=== PATIENT | female | born 1955 | race Caucasian/White ===

== ENCOUNTER → 2021-01-05 06:57 | Outpatient (CLI) | payer SELFPAY ==
[2021-01-05 17:58] LABS: SARS-CoV-2 RNA PCR Negative
== END ==
PROVIDERS: PCP Family Medicine Adolescent Medicine; Visit Provider Family Medicine Adolescent Medicine
DX: R68.89 Other general symptoms and signs (principal); Z20.822 Contact with and (suspected) exposure to COVID-19
CPT/HCPCS: C9803; U0003; U0005

== ENCOUNTER → 2021-09-21 09:32 | Outpatient (CLI) | payer SELFPAY ==
[2021-09-21 19:47] LABS: SARS-CoV-2 RNA PCR Negative
== END ==
PROVIDERS: PCP Family Medicine Adolescent Medicine; Visit Provider Family Medicine Adolescent Medicine
DX: R68.89 Other general symptoms and signs (principal); Z20.822 Contact with and (suspected) exposure to COVID-19
CPT/HCPCS: C9803; U0003; U0005

== ENCOUNTER 2022-10-12 01:43 | Day surgery (SDC) | payer OTHER, SELFPAY ==
[2022-09-26 15:08] VITALS: BMI 39.6
--- NOTE | 2022-10-11 14:15 | P.PNAN_ITS ---
Anes - Initial Pre Proc Eval Procedure: Operation Date: 10/12/22 10:00 Proposed Procedures p Screening Colonoscopy - Ryder Akins MD Date/Time: 10/11/22 14:15 Surgeon: Ryder Akins MD Pre Op Diagnosis: neoplasm screening Patient Data Age: 67 Gender: F Height: 1.7 m Weight: 115 kg Allergies Allergy/AdvReac Type Severity Reaction Status Date / Time perfume Allergy Cough Verified 10/12/22 09:06 amoxicillin [From Amoxil] AdvReac Unknown Unknown Verified 10/12/22 09:06 Penicillins AdvReac Unknown Unknown Verified 10/12/22 09:06 Sulfa (Sulfonamide AdvReac Unknown Rash Verified 10/12/22 09:06 Antibiotics) Home Medications Medication Instructions Recorded Confirmed Type escitalopram oxalate 10 mg tablet 10 mg PO DAILY #90 tabs 07/30/22 10/12/22 Rx fluticasone propionate 50 2 spray intranasal DAILY #16 grams 07/30/22 10/12/22 Rx mcg/actuation nasal spray,suspension pantoprazole 40 mg tablet,delayed 40 mg PO QHS #90 tabs 07/30/22 10/12/22 Rx release Cbd 1 gummy PO HS 09/26/22 10/12/22 History multivitamin with minerals-folic 1 tablet PO DAILY 09/26/22 10/12/22 History acid 0.4 mg tablet Patient hx anesthesia problems: none Family hx anesthesia problems: none Results Review: All pre-operative results and documents have been reviewed as part of the pre- operative evaluation. [facility] Past Medical History Medical History (Updated 10/11/22 @ 14:15 by Alireza Andrea DO) Family history of early menopause 40s GERD (gastroesophageal reflux disease) Major depressive disorder, single episode, moderate Mild intermittent asthma Neuropathy Osteoarthritis Social History Social History Smoking status: Never smoker Alcohol intake: current Living arrangements: with family Anes - Eval Final PreProcedure Day of Procedure 10/11/22 14:15 Patient weight: obese Heart: regular rate and rhythm Lungs: clear to auscultation Airway: Mallampati scale class II Neurological: alert and oriented Last oral intake: >/= 8 hours ASA classification: III Emergent: no Anesthetic plan: proceed Anesthesia type and monitoring: general GIVS and standard monitoring Results Review: All pre-operative results and documents have been reviewed as part of the pre- operative evaluation. Informed Consent: The patient's anesthetic plan and its attendant risks and benefits were discussed with the patient/family/POA. Questions were solicited and answers provided to the satisfaction of the patient/family/POA.
[2022-10-12 09:07] VITALS: BP 136/94; PULSE 56; RESP 20; TEMP 36.2; O2SAT 97
[2022-10-12] MEDS: LACTATED RINGERS 1,000 ML 150 ML IV CONT (09:18)
--- NOTE | 2022-10-12 09:39 | PM.HPGS ---
History of Present Illness History of Present Illness Consent: Risks, benefits, and alternatives have been discussed and questions answered. Patient agrees to proceed with procedure. Chief complaint: neoplasm screening Narrative: Love Jiang is a 67 year old female here for screening colonoscopy, last one 12 years ago Review of Systems Constitutional: Constitutional: Denies headache(s) and Denies weakness Eyes: Eyes: Denies blurry vision ENT: Reports Normal hearing present, Denies headache(s) and Denies neck pain Cardiovascular: Cardiovascular: Denies chest pain and Denies dyspnea Respiratory: Respiratory: Denies dyspnea Gastrointestinal: Gastrointestinal: Reports no additional gastrointestinal complaints Genitourinary: Genitourinary: Denies dysuria Musculoskeletal: Musculoskeletal: Denies neck pain Integumentary/Breasts: Skin/Breast: Denies dry skin Neurologic: Reports Normal hearing present, Denies headache(s) and Denies weakness Psychiatric: Psychiatric: Denies anxiety Endocrine: Endocrine: Denies change in body appearance Hematologic/Lymphatic: Hematologic/Lymphatic: Denies easy bleeding Allergic/Immunologic: Allergic/Immunologic: Denies urticaria PMFSH Past Medical History Medical History (Updated 10/12/22 @ 09:39 by Ryder Akins MD) Colon cancer screening Family history of early menopause 40s GERD (gastroesophageal reflux disease) Major depressive disorder, single episode, moderate Mild intermittent asthma Neuropathy Osteoarthritis Social History Social History Smoking status: Never smoker Alcohol intake: current Living arrangements: with family Meds Home Medications and Allergies Home Medications Medication Instructions Recorded Confirmed Type escitalopram oxalate 10 mg tablet 10 mg PO DAILY #90 tabs 07/30/22 10/12/22 Rx fluticasone propionate 50 2 spray intranasal DAILY #16 grams 07/30/22 10/12/22 Rx mcg/actuation nasal spray,suspension pantoprazole 40 mg tablet,delayed 40 mg PO QHS #90 tabs 07/30/22 10/12/22 Rx release Cbd 1 gummy PO HS 09/26/22 10/12/22 History multivitamin with minerals-folic 1 tablet PO DAILY 09/26/22 10/12/22 History acid 0.4 mg tablet Allergies Allergy/AdvReac Type Severity Reaction Status Date / Time perfume Allergy Cough Verified 10/12/22 09:06 amoxicillin [From Amoxil] AdvReac Unknown Unknown Verified 10/12/22 09:06 Penicillins AdvReac Unknown Unknown Verified 10/12/22 09:06 Sulfa (Sulfonamide AdvReac Unknown Rash Verified 10/12/22 09:06 Antibiotics) Vital Signs Vital Signs - 24 hr 10/12/22 09:07 Temperature 97.2 F L Pulse Rate 56 L Respiratory Rate 20 Blood Pressure 136/94 H Pulse Oximetry 97 Oxygen Delivery Room Air Exam Const: General: comfortable and no acute distress HENMT: Face/Nose/Sinus: Normal nares present Eyes: General: appearance normal, both eyes and all related structures Neck: Neck: no JVD Resp: Auscultation: clear to auscultation bilaterally Cardio: Rate: regular rate Rhythm: regular rhythm GI: Inspection: non-distended GI Palp: Yes Soft to palpation Skin: General skin exam: normal color Neuro: General: gait normal Speech: normal speech Extrem: General: normal to inspection Psych: Mental Status: mental status grossly normal Assessment and Plan Assessment and plan (1) Colon cancer screening: Code(s): Z12.11 - Encounter for screening for malignant neoplasm of colon Status: Acute Assessment and Plan: colonoscopy
[2022-10-12 10:03] VITALS: BP 135/76; PULSE 69; RESP 20; O2SAT 95
[2022-10-12 10:13] VITALS: BP 146/86; PULSE 63; RESP 16; O2SAT 99
[2022-10-12 10:23] VITALS: BP 150/86; PULSE 69; RESP 20; O2SAT 99
== END 2022-10-12 10:34 | disposition home or self-care (01) ==
PROVIDERS: PCP Family Medicine Adolescent Medicine; Visit Provider Internal Medicine Gastroenterology
PROC: 0DJD8ZZ Inspection of Lower Intestinal Tract, Via Natural or Artificial Opening Endoscopic (ICD-10-PCS; CPT 45378; principal; 2022-10-12 10:00)
DX: Z12.11 Encounter for screening for malignant neoplasm of colon (principal); D12.3 Benign neoplasm of transverse colon; K64.8 Other hemorrhoids; K21.9 Gastro-esophageal reflux disease without esophagitis
CPT/HCPCS: 45385; 88305; J2704; J7120

== ENCOUNTER → 2023-01-09 15:13 | Outpatient (CLI) | payer OTHER, SELFPAY ==
--- NOTE | ~2023-01-09 | MM_ITS ---
EXAMINATION: MM screening tien BI w akilah HISTORY: Screening mammogram TECHNIQUE: Craniocaudal and mediolateral oblique 3-D tomosynthesis images were obtained and synthetic 2-D images were generated. CAD analysis was submitted and interpreted. COMPARISON: No prior mammogram is available for comparison at this institution. BREAST PARENCHYMAL COMPOSITION: The breasts are almost entirely fatty. FINDINGS: There is no evidence of suspicious mass, calcification, or architectural distortion to sugg est malignancy in either breast. There has been no suspicious interval change. IMPRESSION: 1. No mammographic evidence of malignancy. 2. Recommend routine screening mammography in one year. BI-RADS Category 1: Negative Reviewed, dictated and finalized at location A.
== END ==
PROVIDERS: PCP Family Medicine Adolescent Medicine; Visit Provider Family Medicine Adolescent Medicine
DX: Z12.31 Encounter for screening mammogram for malignant neoplasm of breast (principal)
CPT/HCPCS: 77063; 77067

== ENCOUNTER 2025-08-06 13:48 | Outpatient (CLI) | payer OTHER, SELFPAY ==
--- NOTE | ~2025-08-06 | MM_ITS ---
EXAMINATION: MM screening tien BI w akilah HISTORY: Screening TECHNIQUE: Craniocaudal and mediolateral oblique 3-D tomosynthesis images were obtained and synthetic 2-D images were generated. CAD analysis was submitted and interpreted. COMPARISON: 01/09/2023 BREAST PARENCHYMAL COMPOSITION: Not Dense: The breasts are almost entirely fatty. FINDINGS: There is no evidence of suspicious mass, calcification, or architectural distortion to suggest malignancy in either breast. There has been no suspicious interval change. IMPRESSION: 1. No mammographic evidence of malignancy. 2. Recommend routine screening mammography in one year. BI-RADS Category 1: Negative Reviewed, dictated and finalized at location O. ST[facility] CHECKER
--- NOTE | ~2025-08-06 | DEXA_ITS ---
Bone Density Report Name: [employer] Age: 70 Sex: Female Ethnicity: White Date of : 1955 Indication: postmenopausal; screening for osteoporosis; height loss; asthma or emphysema; Referring Provider: MERCEDEZ ZAVALA Study: Bone densitometry was performed. Exam Date: August 06, 2025 Accession number: [id number] Bone Density: Region BMD T-score Z-score Classification AP Spine(L1, L2, L3) 0.904 -1.0 0.9 Normal Femoral Neck (Left) 0.624 -2.0 -0.3 Osteopenia Total Hip (Left) 0.950 0.1 1.5 Normal Femoral Neck (Right) 0.617 -2.1 -0.4 Osteopenia Total Hip (Right) 0.931 -0.1 1.3 Normal Total Hip Mean 0.940 0.0 1.4 Normal World Health Organization criteria for BMD impression classify patients as: Normal (T-score at or above -1.0), Osteopenia (T-score between -1.0 and -2.5), or Osteoporosis (T-score at or below -2.5). 10-year Fracture Risk(1): Major Osteoporotic Fracture 10% Hip Fracture 1.7% Reported Risk Factors: [place] (), Neck BMD=0.617, BMI=41.2 (1) FRAX(R) Version 3.08. Fracture probability calculated for an untreated patient. Fracture probability may be lower if the patient has received treatment. Clinical Information Provided by Patient: Has used the following medications: HRT (i.e. estrogen/hormone therapy), Vitamin D Has the following medical conditions: Asthma or Emphysema Patient maximum height was 67 No regular weight bearing exercise Drinks caffeinated beverages Onset of menses at age 14 Number of children 1 Impression: The patient has low bone mass, based on the Right Femoral Neck T-score. The patient has an estimated ten-year risk of hip fracture of 1.7% and an estimated ten-year risk of major fracture of 10%, based on the WHO FRAX algorithm. Discussion: BONE DENSITY IS LOW AT ONE OR MORE SKELETAL SITES. This patient's lowest T-score is low at one or more skeletal sites. It meets the World Health Organization's (WHO) criteria for ?low bone mass? (T-score between -1.0 and -2.5). The patient's 10-year risk of fracture as calculated by FRAX is less than the threshold where pharmacological therapy is recommended by the National Osteoporosis Foundation (NOF). However, all treatment decisions require clinical judgment and consideration of individual patient factors, including patient preferences, comorbidities, previous drug use, risk factors not captured in the FRAX model (e.g., frailty, falls, vitamin D deficiency, increased bone turnover, interval significant decline in bone density) and possible under or overestimation of fracture risk by FRAX. The patient should follow a healthful lifestyle (good nutrition with adequate calcium and vitamin D, and appropriate weight-bearing exercise). Follow-Up: Consider repeating this study in 2 to 3 years to reassess this patient's status, or sooner if there is some new clinical indication. Reported by: LO on 08/06/2025 2:39:00 PM. Reviewed, dictated and finalized at location A.
== END 2025-08-06 13:49 | disposition home or self-care (01) ==
LOC: MICIMG 13:49
PROVIDERS: PCP Nurse Practitioner Family; Visit Provider Nurse Practitioner Family
DX: Z12.31 Encounter for screening mammogram for malignant neoplasm of breast (principal); Z78.0 Asymptomatic menopausal state; M85.852 Other specified disorders of bone density and structure, left thigh; M85.851 Other specified disorders of bone density and structure, right thigh
CPT/HCPCS: 77063; 77067; 77080

== ENCOUNTER 2025-09-06 14:45 | Outpatient (RCR) | payer OTHER, SELFPAY ==
--- NOTE | 2025-07-21 16:17 | OPREHPOC ---
Outpatient Therapy Plan of Care This is a Multidisciplinary Plan of Care that may contain components documented by all disciplines (PT, OT, and ST.) PT Problem 1 PT Problem #1 Knowledge Deficit PT Goal 1 Goal / Goal Update *independent with HEP Target Visit 8 PT Problem 2 PT Problem #2 Pain PT Goal 1 Goal / Goal Update * monitor pain in R hip with increased activity Target Visit 8 PT Problem 3 PT Problem #3 Impaired Strength PT Goal 1 Goal / Goal Update *increase strength of R and L LE to gross 4+/5 to improve gait and balance skills Target Visit 8 PT Problem 4 PT Problem #4 Impaired Functional Mobility PT Goal 1 Goal / Goal Update 1* Moreno balance score of 53/56 2* 2 minute walking test distance of 450' single leg standing x 10 seconds with good stability 3* R 4* L 5* 5 reps sit/stand time of 19 seconds without use of UE's 6* pt up/down 4 steps without hand railing Target Visit 8
--- NOTE | 2025-07-21 16:17 | PTOPEVAL1 ---
Assessment and note entered by Asuncion Hummel, PT Evaluation Information Assessment Status Evaluation ICD-10 Condition Codes (PT) Difficulty Walking R26.2,Abnormalities of gait and mobility R26.9,Weakness R53.1 Onset March 2025 Subjective Information started taking magnesium for draining her legs, started getting more wobbly; last year had vitamin D toxicity and got weak and had troubles with weakness. prior to COVID, she did exercises regularly, now do not go to fitness center and not do exercises; have depression, sleep apnea, eyes weakness and reading makes her tired--sleeping more; no falls in the past 6 months activity: home with 2 entry steps into home; is independent with doing everything around her home, but get tired and having more problems doing everything. 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 She reports problems on stairs and poor walking endurance. And has not had any falls, but wobbly. Self assessment with Modified falls efficacy scale 6% limitation in activity level. History includes: neuropathy of LE's and depression. With the evaluation: 5 reps sit/stand time of 25 seconds, without use of UE's; Moreno balance score of 48/56; 2 minute walking test distance of 375' with reports of R hip pain and SOB; decreased strength of LE's; single leg standing tolerance of 2-3 seconds and unstable; on 4 steps requires one hand railing and alternate step pattern. Skilled PT services are indicated to increase LE strength, gait and balance skills, to improve mobility and ambulation in the community with education for HEP and safety with mobility. Plan of Care Interventions Gait Training,Neuro Re-education,Patient/Caregiver Education,Therapeutic Activities,Therapeutic Exercise PT Services Indicated Yes Treatment Frequency and 1-2x/wk for 8 visits Duration These treatments will address the objective and functional deficits as defined above. The patient will be advanced safely and appropriately in order for the patient to progress towards his/her prior level of function. Additional exercises will be introduced and as well as a comprehensive home exercise program upon discharge, if needed, ?to ensure carryover of functional gains achieved in the clinic. This treatment plan has been reviewed and agreement upon by the patient.
--- NOTE | 2025-09-06 17:42 | PTOPDC ---
Assessment and note entered by Kvng Monreal, PT Evaluation Information Assessment Status Discharge ICD-10 Condition Codes (PT) Difficulty Walking R26.2,Abnormalities of gait and mobility R26.9,Weakness R53.1 Onset March 2025 Subjective Information Reports that since starting therapy she is overall much better. Breathing better and feels she has more energy. She still feels a bit wobbly. She has been a little more active at this time which helps. She has noted that se has been able to lift things better as well. Reported Pain Level Pain Score 1: Self Report Assessment PT Clinical Summary Patient met all personal goals for therapy at this time and is suitable for discharge to [facility] at this time. Patient requested discharge after seeing improvement in objective measures. Plan of Care PT Services Indicated Yes
== END 2025-09-07 09:38 | disposition home or self-care (01) ==
LOC: ANHPT 14:45
PROVIDERS: PCP Nurse Practitioner Family; Visit Provider Nurse Practitioner Family
DX: R26.81 Unsteadiness on feet (principal)
CPT/HCPCS: 97110; 97112; 97161; 97530